=== PATIENT | male | born 1985 | race Two or more races ===

== ENCOUNTER → 2018-11-14 | Day surgery (SDC) | payer OTHER | END | disposition home or self-care (01) | LOC: AMB-ENDOS 11-04 11:00 → ADM 11-04 11:00 → AMB-ENDOS 09:10 | DX: D13.1 Benign neoplasm of stomach (principal) ==

== ENCOUNTER 2018-12-26 08:30 | Day surgery (SDC) | payer OTHER | END 2018-12-26 17:00 | disposition home or self-care (01) | LOC: AMB-ENDOS 08:30 | DX: D12.2 Benign neoplasm of ascending colon (principal); K64.1 Second degree hemorrhoids ==